=== PATIENT | male | born 1985 | race Caucasian/White ===

== ENCOUNTER 2023-08-27 16:18 | Emergency (ER) | payer SELFPAY ==
[2023-08-27 16:21] VITALS: BP 151/93; PULSE 90; RESP 18; TEMP 36.6; O2SAT 100; BMI 25.1
--- NOTE | 2023-08-27 16:57 | ED.RECABL ---
HPI - Recheck/Abnormal Lab/Rx <Scottie Garcia PA-C - Last Filed: 08/27/23 18:30> General Chief Complaint: Recheck/Abnormal Lab/Rx Stated Complaint: Thinks Rhabdo Time Seen by Provider: 08/27/23 16:35 Source: patient Mode of arrival: Ambulatory History of Present Illness HPI narrative: This is a 38-year-old male presents emergency department due to a data half of muscle fatigue, muscle cramping, muscular pain to the touch, nausea, vomiting. Patient has had rhabdo 4 times in the past and suspects that he was having a repeat flare-up. He states he was last hospitalized for 2 weeks to a previous episode of rhabdo. He states that he was seen by his primary care physician [facility] the [facility] who reported his CK being a little bit higher and he was sent to the [facility] for further testing. He was not have a patient case manager. He states that he has not been told of any clear cause of why he has had repeat episodes of rhabdo. Denies any blood in the urine or any urinary issues. Does not recall any increase exercise, or activity that started this episode. Has urinated once today which she says is less than usual and reports it being somewhat darker. History of Graves disease, Gilbert's syndrome, appendectomy, cholecystectomy, rhabdo. Related Data Allergies Allergy/AdvReac Type Severity Reaction Status Date / Time No Known Drug Allergies Allergy Verified 08/27/23 16:21 Review of Systems <Scottie Garcia PA-C - Last Filed: 08/27/23 18:30> Review of Systems Narrative: GENERAL: Denies chills, fatigue, malaise, fever, sweats. HEENT: Denies sinus pain, ear pain, sore throat, difficulty swallowing, dizziness. RESPIRATORY: Denies dyspnea, cough, wheezing, hemoptysis, sputum. CARDIOVASCULAR: Denies chest pain, palpitations, orthopnea, edema, GASTROINTESTINAL: Reports nausea and vomiting, denies abdominal pain, diarrhea, constipation, melena. : Denies dysuria, frequency, incontinence, hematuria, urinary retention. MUSCULOSKELETAL: Reports muscular fatigue, tenderness of the touch, soreness, cramping SKIN: Denies rash, skin lesions, or other NEUROLOGIC: Denies weakness, headache, numbness, change in speech, confusion, seizures, incoordination. PSYCHIATRIC: No concerning psychosocial issues. 12 point review of systems is negative except for those stated above Patient History <Scottie Garcia PA-C - Last Filed: 08/27/23 18:30> Social History Smoking Status: Never smoker Smoking Status: Never smoker alcohol intake frequency: holidays/special occasions only Substance Use Type: marijuana Exam <WILLIAM Quintero Last Filed: 08/27/23 18:30> Narrative Exam Narrative: GENERAL: Well-developed patient, in mild distress. HEAD: Atraumatic. Normocephalic. EYES: Pupils equal round and reactive. Extraocular motions intact. No scleral icterus. No injection or drainage. ENT: Nose without bleeding, purulent drainage. Throat without erythema, tonsillar hypertrophy or exudate. Airway patent. NECK: Trachea midline. Non tender CARDIOVASCULAR: Regular rate and rhythm without murmurs, gallops, or rubs. RESPIRATORY: Clear to auscultation. Breath sounds equal bilaterally. No wheezes, rales, or rhonchi. GASTROINTESTINAL: Abdomen soft, non-tender, nondistended. EXTREMITIES: No edema or joint tenderness. BACK: Nontender without deformity or crepitance. No flank tenderness. NEURO: AOx3. SKIN: No rash or erythema of visible areas Initial Vital Signs Initial Vital Signs: Vital Signs Temperature 97.9 F 08/27/23 16:21 Pulse Rate 90 08/27/23 16:21 Respiratory Rate 18 08/27/23 16:21 Blood Pressure 151/93 H 08/27/23 16:21 Pulse Oximetry 100 08/27/23 16:21 Oxygen Delivery Method Room Air 08/27/23 16:21 <Magi Robertson DO - Last Filed: 08/28/23 07:58> Initial Vital Signs Initial Vital Signs: Vital Signs Temperature 97.9 F 08/27/23 16:21 Pulse Rate 90 08/27/23 16:21 Respiratory Rate 18 08/27/23 16:21 Blood Pressure 151/93 H 08/27/23 16:21 Pulse Oximetry 100 08/27/23 16:21 Oxygen Delivery Method Room Air 08/27/23 16:21 Course <Scottie Garcia PA-C - Last Filed: 08/27/23 18:30> Orders Ordered: Discontinued Medications Sodium Chloride (Normal Saline 0.9%) 1,000 mls @ 1,000 mls/hr IV BOLUS ONE Stop: 08/27/23 17:43 Last Infusion: 08/27/23 17:59 Dose: Infused Documented By: Admin: 08/27/23 17:02 Dose: 1,000 mls/hr Documented By: NIESHA Vital Signs Vital signs: Vital Signs - 8 hr 08/27/23 16:21 Temperature 97.9 F Pulse Rate 90 Respiratory Rate 18 Blood Pressure 151/93 H Pulse Oximetry 100 Oxygen Delivery Method Room Air <Magi Robertson DO - Last Filed: 08/28/23 07:58> Orders Ordered: Discontinued Medications Sodium Chloride (Normal Saline 0.9%) 1,000 mls @ 1,000 mls/hr IV BOLUS ONE Stop: 08/27/23 17:43 Last Infusion: 08/27/23 17:59 Dose: Infused Documented By: Admin: 08/27/23 17:02 Dose: 1,000 mls/hr Documented By: NIESHA Vital Signs Vital signs: Vital Signs - 8 hr 08/27/23 16:21 Temperature 97.9 F Pulse Rate 90 Respiratory Rate 18 Blood Pressure 151/93 H Pulse Oximetry 100 Oxygen Delivery Method Room Air MDM - Recheck/Abnormal Lab/Rx <Scottie Garcia PA-C - Last Filed: 08/27/23 18:30> Lab Data 08/27/23 16:46 08/27/23 16:46 Labs: Lab Results 08/27/23 08/27/23 Range/Units 16:46 18:08 WBC 8.2 (4.5-11.0) X10^3/uL RBC 5.24 (4.5-5.9) X10^6/uL Hgb 16.6 (13.5-17.5) g/dL Hct 47.6 (41-53) % MCV 90.7 (80-100) fL MCH 31.7 (26-34) PG MCHC 35.0 (30-36) % RDW 13.7 (11.6-14.8) % Plt Count 255 (150-400) X10^3/uL Neut % (Auto) 65.3 (50-75) % Lymph % (Auto) 26.4 (25-40) % [place] % (Auto) 7.8 (3-14) % Eos % (Auto) 0.3 L (2-4) % Baso % (Auto) 0.2 (0-2) % Neut # (Auto) 5300 (4403-7445) /uL Lymph # (Auto) 2200 (5501-0463) /uL [place] # (Auto) 600 (0-900) /uL Eos # (Auto) 0 (0-450) /uL Baso # (Auto) 0 (0-100) /uL Sodium 138 (137-145) mmol/L Potassium 3.7 (3.4-5.1) mmol/L Chloride 99 (98-107) mmol/L Carbon Dioxide 30 (22-32) mmol/L BUN 20 (9-20) mg/dL Creatinine 1.43 H (0.66-1.25) mg/dL Estimated GFR > 60 (>60) mL/min BUN/Creatinine Ratio 14.0 (6-22) Glucose 111 H (70-100) mg/dL Calcium 9.8 (8.4-10.2) mg/dL Total Bilirubin 1.4 H (0.2-1.3) mg/dL AST 32 (17-59) IU/L ALT 39 (<50) IU/L Alkaline Phosphatase 51 (38-126) U/L Total Creatine Kinase 187 H (55-170) U/L Total Protein 8.4 H (6.3-8.2) g/dL Albumin 4.8 (3.5-5.0) g/dL Globulin 3.6 (1.7-4.1) g/dL Albumin/Globulin Ratio 1.3 (1.0-2.8) Urine Color Yellow Urine Appearance Clear Urine pH 5.5 (4.5-8.0) Ur Specific [place] 1.020 (1.000-1.035) Urine Protein Negative (Negative) Urine Glucose (UA) Negative (Negative) g/dL Urine Ketones Negative (NEGATIVE) Urine Occult Blood Negative (Negative) Urine Nitrate Negative (Negative) Urine Bilirubin Negative (NEGATIVE) Urine Urobilinogen 0.2 (0.2) E.U./dL Ur Leukocyte Esterase Negative (NEGATIVE) Urine RBC 0-1/hpf (0-5/HPF) Urine WBC None seen (0-5/HPF) Ur Squamous Epith Cells 0-1 /hpf (0-5/HPF) Urine Bacteria None seen (None) Ur Culture Indicated? Cult not indicated Urine Dip Bedside Urine Glucose Negative Bedside Urine Bilirubin - Negative Bedside Urine Ketone - Negative Urine Specific [place] 1.020 Bedside Urine Occult Blood - Negative Bedside Urine pH 6.0 Bedside Urine Protein - Negative Bedside Urine Urobilinogen - Negative Bedside Urine Nitrite - Negative Bedside Urine Leukocytes - Negative Esterase MDM Narrative Medical decision making narrative: MDM * differential diagnosis includes but not limited to rhabdomyolysis, fatigue, muscle soreness * Prior records reviewed: Patient has not been to this emergency department in the past * My lab interpretation: CBC unremarkable. CMP showed elevated creatinine of 1.43. Total CK of 187. UA unremarkable. * My imgaing interpretation: None obtained * Clinical Decision Rules/Scores evaluated: None * Independent discussions with: None ED Course: This is a 38-year-old male presents to the emergency department due to concerns for rhabdomyolysis. Lab work was taken which showed mildly elevated creatinine function suspect to be secondary to dehydration as patient reports minimal water intake today. CK only slightly out of normal range. This was discussed with my attending physician who agreed with the plan for discharge. Patient has not established primary care provider with the [facility] who has sent him to the [facility] for extensive testing regarding these repeated episodes of rhabdomyolysis. Today's workup was reassuring and all vitals within normal limits. Will discharge with recommendations to follow up with the primary care provider. Shared Decision Making: Discussed plan with the patient was comfortable with the plan. Social Considerations: None Disposition: Discharged to home <Magi Robertson, - Last Filed: 08/28/23 07:58> Lab Data Labs: Lab Results 08/27/23 08/27/23 Range/Units 16:46 18:08 WBC 8.2 (4.5-11.0) X10^3/uL RBC 5.24 (4.5-5.9) X10^6/uL Hgb 16.6 (13.5-17.5) g/dL Hct 47.6 (41-53) % MCV 90.7 (80-100) fL MCH 31.7 (26-34) PG MCHC 35.0 (30-36) % RDW 13.7 (11.6-14.8) % Plt Count 255 (150-400) X10^3/uL Neut % (Auto) 65.3 (50-75) % Lymph % (Auto) 26.4 (25-40) % [place] % (Auto) 7.8 (3-14) % Eos % (Auto) 0.3 L (2-4) % Baso % (Auto) 0.2 (0-2) % Neut # (Auto) 5300 (7002-7060) /uL Lymph # (Auto) 2200 (8961-5668) /uL [place] # (Auto) 600 (0-900) /uL Eos # (Auto) 0 (0-450) /uL Baso # (Auto) 0 (0-100) /uL Sodium 138 (137-145) mmol/L Potassium 3.7 (3.4-5.1) mmol/L Chloride 99 (98-107) mmol/L Carbon Dioxide 30 (22-32) mmol/L BUN 20 (9-20) mg/dL Creatinine 1.43 H (0.66-1.25) mg/dL Estimated GFR > 60 (>60) mL/min BUN/Creatinine Ratio 14.0 (6-22) Glucose 111 H (70-100) mg/dL Calcium 9.8 (8.4-10.2) mg/dL Total Bilirubin 1.4 H (0.2-1.3) mg/dL AST 32 (17-59) IU/L ALT 39 (<50) IU/L Alkaline Phosphatase 51 (38-126) U/L Total Creatine Kinase 187 H (55-170) U/L Total Protein 8.4 H (6.3-8.2) g/dL Albumin 4.8 (3.5-5.0) g/dL Globulin 3.6 (1.7-4.1) g/dL Albumin/Globulin Ratio 1.3 (1.0-2.8) Urine Color Yellow Urine Appearance Clear Urine pH 5.5 (4.5-8.0) Ur Specific [place] 1.020 (1.000-1.035) Urine Protein Negative (Negative) Urine Glucose (UA) Negative (Negative) g/dL Urine Ketones Negative (NEGATIVE) Urine Occult Blood Negative (Negative) Urine Nitrate Negative (Negative) Urine Bilirubin Negative (NEGATIVE) Urine Urobilinogen 0.2 (0.2) E.U./dL Ur Leukocyte Esterase Negative (NEGATIVE) Urine RBC 0-1/hpf (0-5/HPF) Urine WBC None seen (0-5/HPF) Ur Squamous Epith Cells 0-1 /hpf (0-5/HPF) Urine Bacteria None seen (None) Ur Culture Indicated? Cult not indicated Urine Dip Bedside Urine Glucose Negative Bedside Urine Bilirubin - Negative Bedside Urine Ketone - Negative Urine Specific [place] 1.020 Bedside Urine Occult Blood - Negative Bedside Urine pH 6.0 Bedside Urine Protein - Negative Bedside Urine Urobilinogen - Negative Bedside Urine Nitrite - Negative Bedside Urine Leukocytes - Negative Esterase Discharge Plan Departure Patient Disposition: Home Clinical Impression: Muscle pain Activity Restrictions/Additional Instructions: Thank you for coming to the [facility] Emergency Department today. As we discussed your lab work today was very reassuring. All your vitals were within normal limits. Your lab work showed very mildly elevated kidney function although this maybe due to dehydration. Please do your best to get plenty of fluids and electrolytes. The lab testing for rhabdomyolysis, your creatinine kinase, was only very slightly elevated. I recommend he follow up with the primary care provider for further testing and evaluation of these repeat episodes you have been having. I hope you feel better soon. Please follow up with your primary care provider within a week if your symptoms continue. If you do not have a primary care provider please contact the [facility] Resource line at [phone]. They will ask some questions about your medical history and help you get set up with a provider in the community. Referrals: Miscellaneous,Doctor[facility] [Primary Care Provider] - Stand Alone Forms: Patient Portal/API ED Sign-out <Magi Robertson DO - Last Filed: 08/28/23 07:58> Cosign ED Attending [place] Attestation: I was available for consultation.
[2023-08-27 17:00] LABS: Add Manual Diff / Slide Review NO; Basophils Absolute Auto 0 /uL (0-100); Basophils Percent Auto 0.2 % (0-2); Eosinophils Absolute Auto 0 /uL (0-450); Eosinophils Percent Auto 0.3 % (2-4); Hematocrit 47.6 % (41-53); Hemoglobin 16.6 g/dL (13.5-17.5); Lymphocytes Absolute Auto 2200 /uL (1100-4500); Lymphocytes Percent Auto 26.4 % (25-40); Mean Corpuscular Hemoglobin 31.7 PG (26-34); Mean Corpuscular Volume 90.7 fL (80-100); Monocytes Absolute Auto 600 /uL (0-900); Monocytes Percent Auto 7.8 % (3-14); Neutrophils Absolute Auto 5300 /uL (1500-7000); Neutrophils Percent Auto 65.3 % (50-75); Platelet Count 255 X10^3/uL (150-400); Red Blood Cell Count 5.24 X10^6/uL (4.5-5.9); Red Cell Distribution Width 13.7 % (11.6-14.8); White Blood Cell Count 8.2 X10^3/uL (4.5-11.0)
[2023-08-27] MEDS: SODIUM CHLORIDE 0.9% 1,000 ML 1000 ML IV (17:02)
[2023-08-27 17:09] LABS: Alanine Aminotransferase 39 IU/L (<50); Albumin 4.8 g/dL (3.5-5.0); Albumin Globulin Ratio 1.3 (1.0-2.8); Alkaline Phosphatase 51 U/L (38-126); Aspartate Aminotransferase 32 IU/L (17-59); Bilirubin Total 1.4 mg/dL (0.2-1.3); Blood Urea Nitrogen 20 mg/dL (9-20); Calcium 9.8 mg/dL (8.4-10.2); Carbon Dioxide 30 mmol/L (22-32); Chloride 99 mmol/L (98-107); Creatine Kinase 187 U/L (55-170); Estimated Glomerular Filt Rate > 60 mL/min (>60); Globulin 3.6 g/dL (1.7-4.1); Glucose 111 mg/dL (70-100); HEMOLYSIS < 15 (0-50); Potassium 3.7 mmol/L (3.4-5.1); Sodium 138 mmol/L (137-145); Total Protein 8.4 g/dL (6.3-8.2)
[2023-08-27 18:11] LABS: Appearance Urine UA CLEAR; Bilirubin Urine UA NEGATIVE (NEGATIVE); Color Urine UA YELLOW; Glucose Urine UA NEGATIVE (Negative); Ketones Urine UA NEGATIVE (NEGATIVE); Leukocyte Esterase Urine UA NEGATIVE (NEGATIVE); Nitrite Urine UA NEGATIVE (Negative); Occult Blood Urine UA NEGATIVE (Negative); Protein Urine UA NEGATIVE (Negative); Urobilinogen Urine UA 0.2 E.U./dL (0.2); pH Urine UA 5.5 (4.5-8.0)
[2023-08-27 18:45] LABS: Bacteria Urine None Seen; RBC Urine 0-1/HPF (0-5/HPF); Squamous Epithelial Cell Urine 0-1 /HPF (0-5/HPF); WBC Urine None Seen (0-5/HPF)
[2023-08-27 18:46] LABS: Culture Indicated Urine Cult Not Indicated
== END 2023-08-27 18:35 | disposition home or self-care (01) ==
PROVIDERS: Emergency Provider Physician Assistant Medical
DX: R25.2 Cramp and spasm (principal); M79.10 Myalgia, unspecified site
CPT/HCPCS: 36415; 80053; 81001; 81003; 82550; 85025; 99283; 99284

== ENCOUNTER 2024-01-14 15:42 | Emergency (ER) | payer OTHER, SELFPAY ==
[2024-01-14] VITALS (9 sets, daily range): BP systolic 115–136; BP diastolic 73–87; PULSE 62–81; RESP 13–18; TEMP 37; O2SAT 99–100; BMI 22.9
[2024-01-14] MEDS: SODIUM CHLORIDE 0.9% 1,000 ML 1000 ML IV (16:12)
[2024-01-14 16:19] LABS: Add Manual Diff / Slide Review NO; Basophils Absolute Auto 0 /uL (0-100); Basophils Percent Auto 0.3 % (0-2); Eosinophils Absolute Auto 0 /uL (0-450); Eosinophils Percent Auto 0.1 % (2-4); Hematocrit 47.7 % (41-53); Hemoglobin 16.6 g/dL (13.5-17.5); Lymphocytes Absolute Auto 1500 /uL (1100-4500); Lymphocytes Percent Auto 17.1 % (25-40); Mean Corpuscular HGB Conc 34.7 % (30-36); Mean Corpuscular Hemoglobin 30.6 PG (26-34); Mean Corpuscular Volume 88.1 fL (80-100); Monocytes Absolute Auto 600 /uL (0-900); Monocytes Percent Auto 7.3 % (3-14); Neutrophils Absolute Auto 6600 /uL (1500-7000); Neutrophils Percent Auto 75.2 % (50-75); Platelet Count 313 X10^3/uL (150-400); Red Blood Cell Count 5.42 X10^6/uL (4.5-5.9); Red Cell Distribution Width 13.7 % (11.6-14.8); White Blood Cell Count 8.8 X10^3/uL (4.5-11.0)
[2024-01-14 16:23] LABS: Alanine Aminotransferase 23 IU/L (<50); Albumin Globulin Ratio 1.7 (1.0-2.8); Alkaline Phosphatase 58 U/L (38-126); Aspartate Aminotransferase 26 IU/L (17-59); BUN Creatinine Ratio 5.9 (6-22); Bilirubin Total 2.7 mg/dL (0.2-1.3); Blood Urea Nitrogen 7 mg/dL (9-20); Calcium 9.7 mg/dL (8.4-10.2); Carbon Dioxide 26 mmol/L (22-32); Chloride 107 mmol/L (98-107); Creatine Kinase 133 U/L (55-170); Estimated Glomerular Filt Rate > 60 mL/min (>60); Glucose 104 mg/dL (70-100); HEMOLYSIS 27 (0-50); Lipase 131 U/L (23-300); Potassium 4.1 mmol/L (3.4-5.1); Sodium 140 mmol/L (137-145)
--- NOTE | 2024-01-14 16:31 | ED.GENADULT ---
HPI - General Adult General Chief complaint: Syncope Stated complaint: NVD, Syncope X 3 days Time Seen by Provider: 01/14/24 16:05 Source: patient Mode of arrival: Ambulatory History of Present Illness HPI narrative: Patient is a 38-year-old male with a history of IBS. Also has a history of multiple kidney stones who is here for evaluation of 3 days of nausea and vomiting. He was having loose stools but because of his IBS this is common for him and he states this is not any different than his baseline. He states he was having dark-colored urine. He states that anything he tries to drink or eat he vomits. No recent travel. No recent antibiotics. His son vomited randomly 1 time yesterday but has had no other similar symptoms. No fevers. No chest pain. No shortness of breath. He also is complaining of right-sided lower back discomfort. He has had his appendix removed. Has had his gallbladder removed. Related Data Previous Rx's Medication Instructions Recorded ondansetron 4 mg disintegrating 4 mg PO Q6H PRN nausea and 01/14/24 tablet vomiting #10 tabs Allergies Allergy/AdvReac Type Severity Reaction Status Date / Time No Known Drug Allergies Allergy Verified 08/27/23 16:21 Review of Systems Review of Systems Narrative: See HPI Patient History Social History Smoking Status: Never smoker Smoking Status: Never smoker alcohol intake frequency: holidays/special occasions only Substance Use Type: marijuana Exam Initial Vital Signs Initial Vital Signs: Vital Signs Temperature 98.6 F 01/14/24 15:47 Pulse Rate 81 01/14/24 15:47 Respiratory Rate 18 01/14/24 15:47 Blood Pressure 116/81 01/14/24 15:47 Pulse Oximetry 99 01/14/24 15:47 Oxygen Delivery Method Room Air 01/14/24 15:47 HENMT Head: normal to inspection and normocephalic Resp Effort & Inspection: normal respiratory effort Auscultation: clear to auscultation bilaterally Cardio Rate: regular rate Rhythm: regular rhythm GI Inspection: normal to inspection and non-distended Palpation: soft and No tender Back/Spine/Pelvis Back: CVA tenderness right Skin General: no rashes or lesions noted Neuro General: patient alert and patient awake Course Orders Ordered: ED Orders 01/14/24 16:00 Complete Blood Count AUTO DIFF Stat Comprehensive Metabolic Panel Stat Creatine Kinase Stat Lipase Stat 01/14/24 16:06 EKG-12 Lead Stat 01/14/24 16:31 CT kidney ureter bladder (KUB) Stat Discontinued Medications Sodium Chloride (Normal Saline 0.9%) 1,000 mls @ 1,000 mls/hr IV BOLUS ONE Stop: 01/14/24 17:05 Last Infusion: 01/14/24 17:12 Dose: Infused Documented By: Admin: 01/14/24 16:12 Dose: 1,000 mls/hr Documented By: Ketorolac Tromethamine (Ketorolac 30 Mg/Ml Vial) 30 mg IV NOW ONE Stop: 01/14/24 16:31 Last Admin: 01/14/24 16:35 Dose: 30 mg Documented By: Morphine Sulfate (Morphine 4 Mg/Ml Inj) 4 mg IV NOW ONE Stop: 01/14/24 17:12 Last Admin: 01/14/24 17:15 Dose: 4 mg Documented By: Ondansetron HCl (Ondansetron 4 Mg/2 Ml Inj) 4 mg IV NOW ONE Stop: 01/14/24 16:31 Last Admin: 01/14/24 16:35 Dose: 4 mg Documented By: Vital Signs Vital signs: Vital Signs - 8 hr 01/14/24 15:47 01/14/24 15:55 01/14/24 15:56 Temperature 98.6 F Pulse Rate 81 78 77 Respiratory Rate 18 14 18 Blood Pressure 116/81 Pulse Oximetry 99 100 100 Oxygen Delivery Method Room Air 01/14/24 15:56 01/14/24 16:00 01/14/24 16:00 Temperature Pulse Rate 76 Respiratory Rate Blood Pressure 134/83 121/80 Pulse Oximetry 100 Oxygen Delivery Method 01/14/24 16:30 01/14/24 16:30 01/14/24 16:53 Temperature Pulse Rate 76 Respiratory Rate 16 Blood Pressure 124/83 115/73 Pulse Oximetry 100 Oxygen Delivery Method 01/14/24 16:53 01/14/24 17:00 01/14/24 17:00 Temperature Pulse Rate 63 64 Respiratory Rate Blood Pressure 118/81 Pulse Oximetry 100 100 Oxygen Delivery Method 01/14/24 17:30 01/14/24 17:30 Temperature Pulse Rate 62 Respiratory Rate 13 Blood Pressure 123/80 Pulse Oximetry 100 Oxygen Delivery Method Medical Decision Making Lab Data Lab results reviewed: Yes I reviewed the patient's lab results. 01/14/24 16:00 01/14/24 16:00 Labs: Lab Results 01/14/24 Range/Units 16:00 WBC 8.8 (4.5-11.0) X10^3/uL RBC 5.42 (4.5-5.9) X10^6/uL Hgb 16.6 (13.5-17.5) g/dL Hct 47.7 (41-53) % MCV 88.1 (80-100) fL MCH 30.6 (26-34) PG MCHC 34.7 (30-36) % RDW 13.7 (11.6-14.8) % Plt Count 313 (150-400) X10^3/uL Neut % (Auto) 75.2 H (50-75) % Lymph % (Auto) 17.1 L (25-40) % [place] % (Auto) 7.3 (3-14) % Eos % (Auto) 0.1 L (2-4) % Baso % (Auto) 0.3 (0-2) % Neut # (Auto) 6600 (1815-2207) /uL Lymph # (Auto) 1500 (6692-6916) /uL [place] # (Auto) 600 (0-900) /uL Eos # (Auto) 0 (0-450) /uL Baso # (Auto) 0 (0-100) /uL Sodium 140 (137-145) mmol/L Potassium 4.1 (3.4-5.1) mmol/L Chloride 107 (98-107) mmol/L Carbon Dioxide 26 (22-32) mmol/L BUN 7 L (9-20) mg/dL Creatinine 1.18 (0.66-1.25) mg/dL Estimated GFR > 60 (>60) mL/min BUN/Creatinine Ratio 5.9 L (6-22) Glucose 104 H (70-100) mg/dL Calcium 9.7 (8.4-10.2) mg/dL Total Bilirubin 2.7 H (0.2-1.3) mg/dL AST 26 (17-59) IU/L ALT 23 (<50) IU/L Alkaline Phosphatase 58 (38-126) U/L Total Creatine Kinase 133 (55-170) U/L Total Protein 8.0 (6.3-8.2) g/dL Albumin 5.0 (3.5-5.0) g/dL Globulin 3.0 (1.7-4.1) g/dL Albumin/Globulin Ratio 1.7 (1.0-2.8) Lipase 131 (23-300) U/L Urine Dip Bedside Urine Glucose Negative Bedside Urine Bilirubin - Negative Bedside Urine Ketone - Negative Urine Specific [place] 1.015 Bedside Urine Occult Blood - Negative Bedside Urine pH 7.0 Bedside Urine Protein - Negative Bedside Urine Urobilinogen - Negative Bedside Urine Nitrite - Negative Bedside Urine Leukocytes - Negative Esterase Point of care testing: Urine Dip Bedside Urine Glucose Negative Bedside Urine Bilirubin - Negative Bedside Urine Ketone - Negative Urine Specific [place] 1.015 Bedside Urine Occult Blood - Negative Bedside Urine pH 7.0 Bedside Urine Protein - Negative Bedside Urine Urobilinogen - Negative Bedside Urine Nitrite - Negative Bedside Urine Leukocytes - Negative Esterase Imaging Data CT scan - abdomen/pelvis: Radiologist's Impression: PROCEDURE: CT KIDNEY URETER BLADDER (KUB) INDICATIONS: R flank pain eval for stone TECHNIQUE: Axial sections were acquired from the lung bases to the pubic symphysis. Coronal and sagittal reformats were performed. For radiation dose reduction, the following was used: automated exposure control, adjustment of mA and/or kV according to patient size. COMPARISON: None. FINDINGS: Image quality: Diagnostic. Lower Chest: No significant findings. URINARY: Right Kidney: There are numerous small nonobstructing retained intrarenal calculi, likely seven or eight. No hydronephrosis or perinephric inflammation. Right Ureter: No hydroureter or ureteral calcifications. Left Kidney: Numerous upper and lower pole punctate nonobstructing intrarenal calculi. No hydronephrosis or perinephric inflammation. Left Ureter: No hydroureter or ureteral calculi. Bladder: Normal wall thickness. No stones. ABDOMEN: Liver: No contour-deforming solid mass. Gallbladder: Surgically absent. Biliary ducts: Appropriate biliary tree caliber post cholecystectomy. Pancreas: Normal contour. Spleen: Normal size. Coarse calcified granuloma in the posterior lower pole. Adrenal Glands: No adrenal nodules. Stomach and Bowel: Stomach and small bowel loops are normal caliber. Surgically absent appendix. No suspicious colon wall thickening. Peritoneum: No abnormal intraperitoneal fluid. No free air. Ventral Wall: No hernia. Abdominal Nodes: No enlarged retroperitoneal or mesenteric lymph nodes. Vessels: Aorta and inferior vena cava are normal in size. PELVIS: Pelvic Organs: Unremarkable. Pelvic Nodes: Unremarkable. Miscellaneous: No inguinal hernias are seen. Bones: Unremarkable. IMPRESSION: Numerous bilateral nonobstructing intrarenal calculi. No evidence of obstructing calculi or indication of recently passed calculus. ECG Data Attestation: I personally reviewed and interpreted this ECG as follows: Interpretation: Sinus rhythm Ventricular rate is 69 Normal axis Normal QRS Normal QTC No ST T wave changes MDM Narrative Medical decision making narrative: Labs unremarkable. Urine is unremarkable. CT scan shows no ureteral stones or other intra-abdominal issues. He was able to tolerate oral intake after medications. Plan will be is to send him home with [place]. No indication for admission to the hospital. He was given return precautions. He expressed understanding and agreement. Discharge Plan Departure Patient Disposition: Home Clinical Impression: Nausea and vomiting Instructions: Nausea and Vomiting-Adult Activity Restrictions/Additional Instructions: Be sure that you were increasing your fluid intake by drinking small amounts frequently. Contact your primary care doctor for a follow-up. Return to the emergency department for new symptoms. Prescriptions: New ondansetron 4 mg tablet,disintegrating 4 mg PO Q6H PRN (Reason: nausea and vomiting) Qty: 10 0RF Referrals: [place],Doctor[facility] [Primary Care Provider] - Stand Alone Forms: Patient Portal/API
[2024-01-14] MEDS: KETOROLAC 30 MG/ML VIAL IV (16:35)
[2024-01-14] MEDS: ONDANSETRON 4 MG/2 ML INJ IV (16:35)
[2024-01-14] MEDS: MORPHINE 4 MG/ML INJ IV (17:15)
== END 2024-01-14 18:09 | disposition home or self-care (01) ==
PROVIDERS: Emergency Provider Emergency Medicine
DX: R11.2 Nausea with vomiting, unspecified (principal); M54.50 Low back pain, unspecified; R07.9 Chest pain, unspecified
CPT/HCPCS: 36415; 74176; 80053; 81003; 82550; 83690; 85025; 93005; 93010; 96361; 96374; 96375; 99284; J1885; J2270; J2405

== ENCOUNTER 2024-02-13 11:18 | Emergency (ER) | payer SELFPAY ==
[2024-02-13 11:20] VITALS: BP 114/77; PULSE 96; RESP 14; TEMP 36.8; O2SAT 99; BMI 21.5
--- NOTE | 2024-02-13 11:22 | DI.RAD.S_ITS ---
PROCEDURE: XR FOOT LT MIN 3V INDICATIONS: dropped 400lb box on left foot,great toe pain TECHNIQUE: 3 views of the foot were acquired. COMPARISON: None. FINDINGS: Bones: No acute fractures or dislocations. Mild hallux valgus. No suspicious bony lesions. Soft tissues: No suspicious soft tissue calcifications. IMPRESSION: No acute osseous abnormality. If there is continued clinical concern or persistent symptoms, repeat radiographs or cross-sectional imaging (e.g. CT, MRI) may be helpful for further evaluation. Approved by: Bhavin Barr M.D. on 02/13/2024 at 12:08
[2024-02-13 14:45] VITALS: PULSE 82
== END 2024-02-13 15:20 | disposition left against medical advice (07) ==
PROVIDERS: Emergency Provider Emergency Medicine
DX: S99.922A Unspecified injury of left foot, initial encounter (principal); W22.8XXA Striking against or struck by other objects, initial encounter
CPT/HCPCS: 73630; 99281

== ENCOUNTER 2024-07-15 04:37 | Emergency (ER) | payer OTHER, SELFPAY ==
[2024-07-15] VITALS (8 sets, daily range): BP systolic 118–130; BP diastolic 69–84; PULSE 87–105; RESP 16–18; TEMP 36.2; O2SAT 98–100; BMI 20.7
--- NOTE | 2024-07-15 04:45 | ED.ABDPAIN ---
HPI - Abdominal Pain General Chief Complaint: Abdominal Pain Stated Complaint: vomiting, abd pain Time Seen by Provider: 07/15/24 04:40 History of Present Illness HPI narrative: 39-year-old male with no reported past medical history presents with 1 hour of innumerable episodes of nausea, vomiting as well as generalized abdominal pain. Patient states that the pain woke him up from sleep and he vomited ?countless times before coming to the emergency department. He felt like he had to have a bowel movement but was unsuccessful and decided to come to the emergency department. No medications taken prior to arrival. Patient reports his pain as a ?tightness? that starts in his lower abdomen and stretches upwards towards his chest. Previous history of appendectomy and cholecystectomy Related Data Previous Rx's Medication Instructions Recorded ondansetron 4 mg disintegrating 4 mg PO Q6H PRN nausea and 01/14/24 tablet vomiting #10 tabs ondansetron 4 mg disintegrating 4 mg PO Q8H PRN nausea and 07/15/24 tablet vomiting #30 tabs Allergies Allergy/AdvReac Type Severity Reaction Status Date / Time No Known Drug Allergies Allergy Verified 02/13/24 11:20 Patient History Social History Smoking Status: Never smoker Smoking Status: Never smoker alcohol intake frequency: holidays/special occasions only Substance Use Type: marijuana Exam Initial Vital Signs Initial Vital Signs: Vital Signs Pulse Oximetry 100 07/15/24 04:43 Const: Awake, alert, uncomfortable, in pain Cardiac: regular rate, regular rhythm RESP: unlabored, clear bilaterally, no wheezing GI: Soft, generalized tenderness to deep palpation without rebound or guarding : 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, external genitalia normal, no hernias Skin: Warm, Dry, intact, no rashes Neuro: AO x3, CN II-XII grossly intact, moves all extremities Course Orders Ordered: Discontinued Medications Droperidol (Droperidol 5 Mg/2 Ml Vial) 2.5 mg IV NOW ONE Stop: 07/15/24 04:45 Last Admin: 07/15/24 04:51 Dose: 2.5 mg Documented By: HNG Sodium Chloride (Normal Saline 0.9%) 1,000 mls @ 1,000 mls/hr IV BOLUS ONE Stop: 07/15/24 05:43 Last Infusion: 07/15/24 06:47 Dose: Infused Documented By: Admin: 07/15/24 04:51 Dose: 1,000 mls/hr Documented By: SUSANNE Ketorolac Tromethamine (Ketorolac 30 Mg/Ml Vial) 15 mg IV NOW ONE Stop: 07/15/24 06:31 Last Admin: 07/15/24 06:38 Dose: 15 mg Documented By: JYOTI Ondansetron HCl (Ondansetron 4 Mg/2 Ml Inj) 4 mg IV NOW ONE Stop: 07/15/24 06:31 Last Admin: 07/15/24 06:39 Dose: 4 mg Documented By: JYOTI Vital Signs Vital signs: Vital Signs - 8 hr 07/15/24 04:43 07/15/24 04:44 07/15/24 04:44 Temperature Pulse Rate 104 H Respiratory Rate Blood Pressure 123/78 Pulse Oximetry 100 100 Oxygen Delivery Method 07/15/24 04:45 07/15/24 05:00 07/15/24 05:00 Temperature 97.1 F L Pulse Rate 105 H 87 Respiratory Rate 18 16 Blood Pressure 123/78 119/75 Pulse Oximetry 100 98 Oxygen Delivery Method Room Air 07/15/24 05:30 07/15/24 05:30 07/15/24 06:00 Temperature Pulse Rate 88 90 Respiratory Rate Blood Pressure 120/84 Pulse Oximetry 100 100 Oxygen Delivery Method 07/15/24 06:00 07/15/24 06:30 07/15/24 06:30 Temperature Pulse Rate 96 H Respiratory Rate Blood Pressure 126/80 130/78 Pulse Oximetry 100 Oxygen Delivery Method MDM - Abdominal Pain Differential Diagnosis Differential diagnosis: Likely abdominal pain, gastroenteritis and pancreatitis Lab Data 07/15/24 04:47 07/15/24 04:47 Labs: Lab Results 07/15/24 Range/Units 04:47 WBC 16.4 H (4.5-11.0) X10^3/uL RBC 5.62 (4.5-5.9) X10^6/uL Hgb 17.6 H (13.5-17.5) g/dL Hct 50.9 (41-53) % MCV 90.7 (80-100) fL MCH 31.4 (26-34) PG MCHC 34.6 (30-36) % RDW 13.4 (11.6-14.8) % Plt Count 315 (150-400) X10^3/uL Neut % (Auto) 87.8 H (50-75) % Lymph % (Auto) 9.6 L (25-40) % [place] % (Auto) 2.2 L (3-14) % Eos % (Auto) 0.1 L (2-4) % Baso % (Auto) 0.3 (0-2) % Neut # (Auto) 10116 H (6450-8302) /uL Lymph # (Auto) 1600 (1455-1211) /uL [place] # (Auto) 400 (0-900) /uL Eos # (Auto) 0 (0-450) /uL Baso # (Auto) 0 (0-100) /uL Sodium 139 (137-145) mmol/L Potassium 3.8 (3.4-5.1) mmol/L Chloride 101 (98-107) mmol/L Carbon Dioxide 27 (22-32) mmol/L BUN 18 (9-20) mg/dL Creatinine 1.52 H (0.66-1.25) mg/dL Estimated GFR 60 (>60) mL/min BUN/Creatinine Ratio 11.8 (6-22) Glucose 98 (70-100) mg/dL Lactate 1.0 (0.7-2.1) mmol/L Calcium 9.9 (8.4-10.2) mg/dL Total Bilirubin 2.0 H (0.2-1.3) mg/dL AST 34 (17-59) IU/L ALT 34 (<50) IU/L Alkaline Phosphatase 57 (38-126) U/L Total Protein 8.4 H (6.3-8.2) g/dL Albumin 4.9 (3.5-5.0) g/dL Globulin 3.5 (1.7-4.1) g/dL Albumin/Globulin Ratio 1.4 (1.0-2.8) Lipase 170 (23-300) U/L Point of care testing: Urine Dip Bedside Urine Glucose Negative Bedside Urine Bilirubin - Negative Bedside Urine Ketone - Negative Urine Specific [place] 1.015 Bedside Urine Occult Blood - Negative Bedside Urine pH 6.0 Bedside Urine Protein - Negative Bedside Urine Urobilinogen - Negative Bedside Urine Nitrite - Negative Bedside Urine Leukocytes - Negative Esterase MDM Narrative Medical decision making narrative: Uncomfortable but nontoxic appearing patient with 1 hour of symptoms. Abdomen soft, he is generally tender to palpation without any focality. Due to the nonperitoneal exam as well as short duration of symptoms will order labs, nausea medications, iv fluids and will reassess. Laboratory work shows WBC count 16.4, hemoglobin 17.6, platelet count 315, sodium 139, potassium 3.8, creatinine 1.52, GFR 60, T bili 2.0 (previous values 2.7 and 1.4), normal liver enzymes. Patient able to tolerate p.o. crackers and fluids after administration of IV fluids and antiemetics. Counseled on following a light diet over the next several days. Nausea medication sent to pharmacy of choice. Discharge Plan Departure Patient Disposition: Home Clinical Impression: Abdominal pain, Nausea and vomiting Instructions: Nausea and Vomiting-Adult Activity Restrictions/Additional Instructions: For the next several days follow a light diet. Nausea medications have been sent to your pharmacy. You may develop diarrhea, if this happens make sure to stay hydrated and drink plenty of fluids. Prescriptions: New ondansetron 4 mg tablet,disintegrating 4 mg PO Q8H PRN (Reason: nausea and vomiting) Qty: 30 0RF No Action ondansetron 4 mg tablet,disintegrating 4 mg PO Q6H PRN (Reason: nausea and vomiting) Qty: 10 0RF Referrals: Miscellaneous,Doctor, MD [Primary Care Provider] - Stand Alone Forms: Patient Portal/API/Survey, Work Release Note
[2024-07-15] MEDS: SODIUM CHLORIDE 0.9% 1,000 ML 1000 ML IV (04:51)
[2024-07-15] MEDS: DROPERIDOL 5 MG/2 ML VIAL 2.5 MG IV (04:51)
[2024-07-15 04:57] LABS: Add Manual Diff / Slide Review NO; Basophils Absolute Auto 0 /uL (0-100); Basophils Percent Auto 0.3 % (0-2); Eosinophils Absolute Auto 0 /uL (0-450); Eosinophils Percent Auto 0.1 % (2-4); Hematocrit 50.9 % (41-53); Hemoglobin 17.6 g/dL (13.5-17.5); Lymphocytes Absolute Auto 1600 /uL (1100-4500); Lymphocytes Percent Auto 9.6 % (25-40); Mean Corpuscular HGB Conc 34.6 % (30-36); Mean Corpuscular Hemoglobin 31.4 PG (26-34); Mean Corpuscular Volume 90.7 fL (80-100); Monocytes Absolute Auto 400 /uL (0-900); Monocytes Percent Auto 2.2 % (3-14); Neutrophils Absolute Auto 14400 /uL (1500-7000); Neutrophils Percent Auto 87.8 % (50-75); Platelet Count 315 X10^3/uL (150-400); Red Blood Cell Count 5.62 X10^6/uL (4.5-5.9); Red Cell Distribution Width 13.4 % (11.6-14.8); White Blood Cell Count 16.4 X10^3/uL (4.5-11.0)
[2024-07-15 05:08] LABS: Alanine Aminotransferase 34 IU/L (<50); Albumin 4.9 g/dL (3.5-5.0); Albumin Globulin Ratio 1.4 (1.0-2.8); Alkaline Phosphatase 57 U/L (38-126); Aspartate Aminotransferase 34 IU/L (17-59); BUN Creatinine Ratio 11.8 (6-22); Blood Urea Nitrogen 18 mg/dL (9-20); Calcium 9.9 mg/dL (8.4-10.2); Carbon Dioxide 27 mmol/L (22-32); Chloride 101 mmol/L (98-107); Estimated Glomerular Filt Rate 60 mL/min (>60); Globulin 3.5 g/dL (1.7-4.1); Glucose 98 mg/dL (70-100); HEMOLYSIS < 15 (0-50); Lipase 170 U/L (23-300); Potassium 3.8 mmol/L (3.4-5.1); Sodium 139 mmol/L (137-145); Total Protein 8.4 g/dL (6.3-8.2)
[2024-07-15] MEDS: KETOROLAC 30 MG/ML VIAL 15 MG IV (06:38)
[2024-07-15] MEDS: ONDANSETRON 4 MG/2 ML INJ IV (06:39)
== END 2024-07-15 07:08 | disposition home or self-care (01) ==
PROVIDERS: Emergency Provider Emergency Medicine
DX: R10.84 Generalized abdominal pain (principal); R11.2 Nausea with vomiting, unspecified; R79.89 Other specified abnormal findings of blood chemistry
CPT/HCPCS: 80053; 81003; 83605; 83690; 85025; 96361; 96374; 96375; 99283; 99284; J1790; J1885; J2405

== ENCOUNTER 2024-12-28 12:22 | Emergency (ER) | payer OTHER, SELFPAY ==
[2024-12-28 12:23] VITALS: BP 134/86; PULSE 76; RESP 18; TEMP 36.7; O2SAT 100; BMI 21.5
--- NOTE | 2024-12-28 12:27 | DI.RAD.S_ITS ---
PROCEDURE: XR FINGER LT MIN 2V INDICATIONS: broke screw off in left pointer TECHNIQUE: The hand, 2 views of the index finger acquired. COMPARISON: None. FINDINGS: Bones: No acute fractures or dislocations. No suspicious bony lesions. Soft tissues: No suspicious soft tissue calcifications. Punctate superficial density seen along the radial aspect of the distal index finger IMPRESSION: Punctate radiodensity in the superficial soft tissues at the radial aspect of the distal index finger could represent a tiny foreign body. No acute osseous abnormality. Approved by: Bhavin Barr M.D. on 12/28/2024 at 12:52
[2024-12-28] MEDS: TET,DIPH,PERTUSS(ACELL),VAC/PF 0.5 ML SYRINGE IM (12:59)
--- NOTE | 2024-12-28 14:27 | DI.RAD.S_ITS ---
PROCEDURE: XR FINGER LT MIN 2V INDICATIONS: ?foreign body TECHNIQUE: AP hand, 2 views of the 2nd finger(s) acquired. COMPARISON: [facility], , XR FINGER LT MIN 2V, 12/28/2024, 12:27. FINDINGS: Bones: No fractures or dislocations. No suspicious bony lesions. Soft tissues: No suspicious soft tissue calcifications. Earlier noted possible tiny foreign body in radial aspect of distal 2nd finger soft tissue is no longer seen. IMPRESSION: No 2nd finger fracture or dislocation. No radiopaque foreign body is noted on the current study. Dictated by: Vincent Arechiga M.D. on 12/28/2024 at 15:53 Approved by: Vincent Arechiga M.D. on 12/28/2024 at 15:55
[2024-12-28] MEDS: IBUPROFEN 400 MG TABLET 800 MG PO (14:44)
[2024-12-28 16:23] VITALS: BP 140/76; PULSE 88; RESP 16; TEMP 36.8; O2SAT 98
--- NOTE | 2024-12-29 15:06 | ED.SKABFB ---
HPI - Skin/Abscess/Foreign Bdy <Waldo Morfin PA-C - Last Filed: 12/29/24 15:12> General Chief complaint: Skin/Abscess/Foreign Body Stated complaint: finger laceration Time Seen by Provider: 12/28/24 12:47 Source: patient Mode of arrival: Ambulatory Limitations: no limitations History of Present Illness HPI narrative: 39-year-old male presents to the ED status post a left pointer puncture injury sustained at work just prior to arrival. Patient was working with a drill and screw, when the screw broke and punctured the tip of his left pointer finger. Patient was able to pull out the screw. Patient states that he was able to control the bleeding with pressure. Patient endorses pain at the site of the wound. Denies numbness, tingling, weakness. Tetanus status unknown. Related Data Previous Rx's Medication Instructions Recorded ondansetron 4 mg disintegrating 4 mg PO Q6H PRN nausea and 01/14/24 tablet vomiting #10 tabs ondansetron 4 mg disintegrating 4 mg PO Q8H PRN nausea and 07/15/24 tablet vomiting #30 tabs Allergies Allergy/AdvReac Type Severity Reaction Status Date / Time No Known Drug Allergies Allergy Verified 02/13/24 11:20 Review of Systems <Waldo Morfin PA-C - Last Filed: 12/29/24 15:12> Constitutional Constitutional: Denies chills, Denies fatigue, Denies fever(s), Denies frequent falls, Denies lethargy and Denies weakness Eyes Eyes: Denies change in vision, Denies eye discharge, Denies irritation and Denies loss of vision ENT Ears, Nose, Mouth, and Throat: Denies change in voice, Denies dizziness, Denies neck pain, Denies sore throat and Denies throat swelling Cardiovascular Cardiovascular: Denies chest pain, Denies irregular heart rhythm, Denies lightheadedness, Denies palpitations, Denies dyspnea, Denies dyspnea on exertion and Denies orthopnea Respiratory Respiratory: Denies cough, Denies dyspnea, Denies dyspnea on exertion and Denies wheezing Gastrointestinal Gastrointestinal: Denies abdominal pain, Denies change in bowel habits, Denies diarrhea, Denies nausea and Denies vomiting Musculoskeletal Musculoskeletal: Denies neck pain and Denies numbness Integumentary/Breasts Skin/Breast: Denies pruritus, Denies erythema, Denies rash and Reports wounds Comments: Wound to left pointer finger tip Neurologic Neurologic: Denies behavioral changes, Denies confusion, Denies dizziness, Denies frequent falls, Denies loss of vision, Denies numbness and Denies weakness Psychiatric Psychiatric: Denies anxiety, Denies behavioral changes, Denies confusion, Denies depression, Denies homicidal ideation and Denies suicidal ideation Endocrine Endocrine: Denies fatigue, Denies flushing and Denies palpitations Hematologic/Lymphatic Hematologic/Lymphatic: Denies easy bruising Allergic/Immunologic Allergic/Immunologic: Denies urticaria, Denies throat swelling and Denies wheezing Patient History <Waldo Morfin PA-C - Last Filed: 12/29/24 15:12> Social History Smoking Status: Current every day smoker Smoking Status: Current every day smoker tobacco type: smokeless tobacco alcohol intake frequency: holidays/special occasions only Exam <Waldo Morfin PA-C - Last Filed: 12/29/24 15:12> Narrative Exam Narrative: Const General:?cooperative, healthy appearing and comfortable [facility] Head:?normal to inspection Ears:?hearing grossly normal bilaterally Nose:?external nose normal Face and sinus:?normal facial exam and sinuses nontender Mouth:?oral mucosae normal Throat:?posterior oropharynx normal Eyes General:?appearance normal, both eyes and all related structures Neck Neck:?normal visual inspection and no lymphadenopathy noted Resp Effort & Inspection:?normal respiratory effort Auscultation:?clear to auscultation bilaterally Cardio Rate:?regular rate Rhythm:?regular rhythm Integumentary There is a small puncture wound to the radial aspect of the tip of the left index finger. Bleeding is controlled with pressure. No indication to repair. Neurovascularly intact. Neuro General:?patient alert, patient awake and patient oriented x3 Initial Vital Signs Initial Vital Signs: Vital Signs Temperature 98.1 F 12/28/24 12:23 Pulse Rate 76 12/28/24 12:23 Respiratory Rate 18 12/28/24 12:23 Blood Pressure 134/86 12/28/24 12:23 Pulse Oximetry 100 12/28/24 12:23 Oxygen Delivery Method Room Air 12/28/24 12:23 <Magi Robertson DO - Last Filed: 01/03/25 09:06> Initial Vital Signs Initial Vital Signs: Vital Signs Temperature 98.1 F 12/28/24 12:23 Pulse Rate 76 12/28/24 12:23 Respiratory Rate 18 12/28/24 12:23 Blood Pressure 134/86 12/28/24 12:23 Pulse Oximetry 100 12/28/24 12:23 Oxygen Delivery Method Room Air 12/28/24 12:23 Course <Waldo Morfin PA-C - Last Filed: 12/29/24 15:12> Orders Ordered: Discontinued Medications Diphtheria/Tetanus/Acell Pertussis (Tet,Diph,Pertuss(Acell),Vac/Pf 0.5 Ml Syringe) 0.5 ml IM .ONCE ONE Stop: 12/28/24 12:28 Last Admin: 12/28/24 12:59 Dose: 0.5 ml Documented By: JAI Ibuprofen (Ibuprofen 400 Mg Tablet) 800 mg PO NOW ONE Stop: 12/28/24 14:42 Last Admin: 12/28/24 14:44 Dose: 800 mg Documented By: RB <Magi Robertson DO - Last Filed: 01/03/25 09:06> Orders Ordered: Discontinued Medications Diphtheria/Tetanus/Acell Pertussis (Tet,Diph,Pertuss(Acell),Vac/Pf 0.5 Ml Syringe) 0.5 ml IM .ONCE ONE Stop: 12/28/24 12:28 Last Admin: 12/28/24 12:59 Dose: 0.5 ml Documented By: JAI Ibuprofen (Ibuprofen 400 Mg Tablet) 800 mg PO NOW ONE Stop: 12/28/24 14:42 Last Admin: 12/28/24 14:44 Dose: 800 mg Documented By: JAI MDM - Skin/Abscess/Foreign Bdy <Waldo Morfin PA-C - Last Filed: 12/29/24 15:12> MDM Narrative Medical decision making narrative: 39-year-old male presents to the ED status post a left pointer puncture injury sustained at work just prior to arrival. X-ray was obtained which shows a punctate radiodensity in the superficial soft tissues at the radial aspect of the distal index finger, possibly a tiny foreign body. No acute osseous abnormality. Patient's finger was anesthetized with lidocaine, soaked, irrigated thoroughly to flush out the foreign body. Post irrigation x-ray was obtained which confirms no radiopaque foreign body. Tetanus was updated. Patient's wound was dressed. Wound care instructions, signs of infection discussed with patient. ED return precautions were discussed with patient. Patient verbalized understanding. Medical records reviewed: Yes Discharge Plan Departure Patient Disposition: Home Clinical Impression: Finger injury Qualifiers: Encounter type: initial encounter Laterality: left Qualified Code(s): S69.92XA - Unspecified injury of left wrist, hand and finger(s), initial encounter Instructions: DI for Minor Laceration Activity Restrictions/Additional Instructions: You were evaluated in the ED today for a finger injury. The x-ray initially showed a foreign body which was likely a small piece of the screw in the wound. After washing it out, a repeat x-ray was done which shows no foreign body. Your tetanus was updated today which is valid for the next 10 years. Your wound has been dressed. Please keep the wound clean and dry for the 1st 24 hours, after which you may wash gently with soap and water. It is advisable to keep the wound covered with a dry dressing. Please do not allow the dressing to get wet for any period of time. Please watch for signs of infection including worsening redness, discharge, swelling, warmth, pain. Return to the ED if you note any signs of infection. Prescriptions: No Action ondansetron 4 mg tablet,disintegrating 4 mg PO Q6H PRN (Reason: nausea and vomiting) Qty: 10 0RF ondansetron 4 mg tablet,disintegrating 4 mg PO Q8H PRN (Reason: nausea and vomiting) Qty: 30 0RF Referrals: Miscellaneous,Doctor, MD [Primary Care Provider] - Stand Alone Forms: Patient Portal/API/Survey ED Sign-out <Magi Robertson DO - Last Filed: 01/03/25 09:06> [facility] Sherronature Attestation: I was available for consultation.
== END 2024-12-28 16:20 | disposition home or self-care (01) ==
PROVIDERS: Emergency Provider Student in an Organized Health Care Education/Training Program
DX: S69.92XA Unspecified injury of left wrist, hand and finger(s), initial encounter (principal); X58.XXXA Exposure to other specified factors, initial encounter; Z23 Encounter for immunization
CPT/HCPCS: 73140; 90471; 99283; 90715